=== PATIENT | female | born 1970 | race Caucasian/White ===

== ENCOUNTER 2023-06-14 21:41 | Emergency (ER) | payer BC, OTHER, SELFPAY ==
[2023-06-14] VITALS (10 sets, daily range): BP systolic 122–137; BP diastolic 77–85; PULSE 85–97; RESP 18; TEMP 36.4; O2SAT 94–97; BMI 31.9
--- NOTE | 2023-06-14 21:57 | ED.GENADULT ---
HPI - General Adult General Chief complaint: Allergic Reaction Stated complaint: allergic reaction Time Seen by Provider: 06/14/23 21:48 History of Present Illness HPI narrative: Patient here with tingling around lips after accidentally ingesting shrimp around 21:30 pm. Tried to vomit it up but couldn't. History of lip and face swelling in the past. Has epi pen with her but did not use prior to gettin 52-year-old woman presenting to the emergency department with concern of shrimp ingestion. 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 Realizing this about 15 minutes ago she took 50 mg oral diphenhydramine. Does have an EpiPen available but has not yet used it. She feels little nauseated but thinks that that is because of feeling stressed over this experience. Is feeling her lips being full and tingly. No difficulty breathing. No sensation of throat tightness or tongue swelling. No rashes noted. She tried to throw up immediate that after realizing what she had eaten but could not. Has never been intubated for shellfish ingestion. Related Data Previous Rx's Medication Instructions Recorded epinephrine 0.3 mg/0.3 mL 0.3 mg (0.3 mL) IM Q5-15M PRN #2 ea 06/15/23 injection, auto-injector (EpiPen) Allergies Allergy/AdvReac Type Severity Reaction Status Date / Time cephalexin [From Keflex] Allergy Severe Anaphylaxis Verified 06/14/23 22:08 shellfish Allergy Severe Anaphylaxis Uncoded 06/14/23 22:08 Review of Systems Status of ROS: Reports: 6 or more systems reviewed and unremarkable except as noted in History and below [facility] Social History Smoking Status: Never smoker Non-prescribed substance use: denies use Exam Narrative: Exam Narrative: Pleasant. Appears mildly maybe moderately anxious. Distracted. Speaking fluidly. No stridor. Lungs are clear. Breathing easily I do not appreciate any rash. Oropharynx moist. I do not appreciate any swelling or erythema. Is a little hesitant open her mouth wide it appears. Neck is supple without lymphadenopathy. Heart in elevated rate and regular rhythm. Abdomen is soft nontender. Extremities are well perfused without edema. Cranial nerves 2-12 intact. Const: Vital Signs, click to edit/add: Vital Signs - 24 hr 06/14/23 22:08 06/14/23 22:16 06/14/23 22:17 Temperature 97.6 F Pulse Rate 93 95 Pulse Rate [Right Pulse Oximeter] 92 Respiratory Rate 18 Blood Pressure 122/77 Blood Pressure [Ri ght Upper Arm] 137/85 Pulse Oximetry 97 97 97 Oxygen Delivery Me thod Room Air 06/14/23 22:19 06/14/23 22:30 06/14/23 22:45 Temperature Pulse Rate 97 90 Pulse Rate [Right Pulse Oximeter] Respiratory Rate Blood Pressure Blood Pressure [Ri ght Upper Arm] Pulse Oximetry 96 97 97 Oxygen Delivery Me thod 06/14/23 23:00 06/14/23 23:15 06/14/23 23:30 Temperature Pulse Rate 87 88 85 Pulse Rate [Right Pulse Oximeter] Respiratory Rate Blood Pressure Blood Pressure [Ri ght Upper Arm] Pulse Oximetry 95 95 94 Oxygen Delivery Me thod 06/14/23 23:45 06/15/23 00:00 06/15/23 00:15 Temperature Pulse Rate 85 82 77 Pulse Rate [Right Pulse Oximeter] Respiratory Rate Blood Pressure Blood Pressure [Ri ght Upper Arm] Pulse Oximetry 94 93 93 Oxygen Delivery Me thod 06/15/23 00:30 06/15/23 00:45 06/15/23 01:00 Temperature Pulse Rate 79 81 80 Pulse Rate [Right Pulse Oximeter] Respiratory Rate Blood Pressure Blood Pressure [Ri ght Upper Arm] Pulse Oximetry 94 93 94 Oxygen Delivery Me thod 06/15/23 01:15 06/15/23 01:30 06/15/23 01:45 Temperature Pulse Rate 80 79 78 Pulse Rate [Right Pulse Oximeter] Respiratory Rate Blood Pressure Blood Pressure [Ri ght Upper Arm] Pulse Oximetry 94 92 93 Oxygen Delivery Me thod 06/15/23 02:00 06/15/23 02:15 06/15/23 02:30 Temperature Pulse Rate 76 78 84 Pulse Rate [Right Pulse Oximeter] Respiratory Rate Blood Pressure Blood Pressure [Ri ght Upper Arm] Pulse Oximetry 94 93 92 Oxygen Delivery Me thod 06/15/23 02:45 06/15/23 03:00 06/15/23 03:15 Temperature Pulse Rate 82 83 78 Pulse Rate [Right Pulse Oximeter] Respiratory Rate Blood Pressure Blood Pressure [Ri ght Upper Arm] Pulse Oximetry 93 93 94 Oxygen Delivery Me thod 06/15/23 03:20 Temperature Pulse Rate 80 Pulse Rate [Right Pulse Oximeter] Respiratory Rate 16 Blood Pressure 122/86 Blood Pressure [Ri ght Upper Arm] Pulse Oximetry 100 Oxygen Delivery Me thod Documenting provider has reviewed patient's vital signs: yes Course Vital Signs Vital signs: Initial Vital Signs Temperature 97.6 F 06/14/23 22:08 Temperature Source Temporal Artery Scan 06/14/23 22:08 Pulse Rate 92 06/14/23 22:08 Pulse Rhythm Regular 06/14/23 22:08 Respiratory Rate 18 06/14/23 22:08 Blood Pressure 137/85 06/14/23 22:08 Blood Pressure Mean 102 06/14/23 22:08 Blood Pressure Position Sitting 06/14/23 22:08 Pulse Oximetry 97 06/14/23 22:08 Oxygen Delivery Method Room Air 06/14/23 22:08 Vital Signs Temperature 97.6 F 06/14/23 22:08 Pulse Rate 92 06/14/23 22:08 Respiratory Rate 18 06/14/23 22:08 Blood Pressure 137/85 06/14/23 22:08 Pulse Oximetry 97 06/14/23 22:08 Oxygen Delivery Method Room Air 06/14/23 22:08 Temperature 97.6 F 06/14/23 22:08 Pulse Rate 80 06/15/23 03:20 Respiratory Rate 16 06/15/23 03:20 Blood Pressure 122/86 06/15/23 03:20 Pulse Oximetry 100 06/15/23 03:20 Oxygen Delivery Method Room Air 06/14/23 22:08 Medications Administered Medications: Discontinued Medications Generic Name Dose Route Start Last Admin Trade Name Freq PRN Reason Stop Dose Admin Diphenhydramine HCl 25 mg 06/14/23 21:56 06/14/23 22:05 Diphenhydramine 50 Mg/Ml Inj IVP 06/14/23 21:57 25 mg ONCE ONE Administration Sodium Chloride 1,000 mls @ 1,000 mls/hr 06/14/23 21:56 06/14/23 22:04 0.9 % Sodium Chloride 1000 Ml IV 06/14/23 22:55 1,000 mls/hr .Q1H ONE Administration Methylprednisolone Sodium Succinate 93.75 mg 06/14/23 21:56 11/18/23 22:05 Methylprednisolone Sod Succ 62.5 Mg/Ml (125) IVP 06/14/23 21:57 93.75 mg ONCE ONE Administration Medical Decision Making MDM Narrative Medical decision making narrative: Clearly is ingested per report small quantity of shrimp/shellfish. Known allergy. Initiated on normal saline given another dose of diphenhydramine as IV and Solu-Medrol. Without respiratory symptoms or sensation of throat tightening tongue swelling I think we can hold on EpiPen. Will monitor closely. Over time in the emergency department was generally well though on a couple of my reassessments thought that her tongue felt a little more full. At 1 point was lying relatively flat and woke alarmed that was having some trouble breathing. Ultimately was requested to receive a dose of lorazepam; I think this was beneficial. After extended period of observation and without further progression of allergic reaction including improvement with some fading of the lip tingling/swelling that had initially reported, was discharged to care of her son. See patient discharge plan ECG Data Attestation: I personally reviewed and interpreted this ECG as follows: (Normal sinus rhythm rate of 87.) Discharge Plan Discharge Clinical Impression: Angioedema, Anxiety, Shellfish allergy, Allergic reaction Condition: Improved Additional Instructions: Stay well-hydrated. Can take diphenhydramine for breakthrough itch or rash. If beginning to have again a sense lip swelling would take diphenhydramine and as long as does not seem to be progressing quickly, give around an 1 hour to notice some improvement and if needed then present to the emergency department. If repeat exposure, take diphenhydramine and then if any sensation of difficulty breathing or throat tightness, use your EpiPen and present to the emergency department. Prednisone for 3 days from the [facility]. EpiPen refill Prescriptions: New epinephrine [EpiPen] 0.3 mg/0.3 mL auto-injector 0.3 mg IM Q5-15M PRNQty: 2 0RF Rx Instructions: do not exceed 3 doses per episode Follow Up/Referrals: Jarod Schofield MD [Staff Physician] - Stand Alone Forms: [employer] Info Instructions
[2023-06-14] MEDS: 0.9 % SODIUM CHLORIDE 1000 ml 1,000 ML IV (22:04)
[2023-06-14] MEDS: diphenhydrAMINE 50 MG/ML inj 25 MG IVP (22:05)
[2023-06-14] MEDS: METHYLPREDNISOLONE SOD SUCC 62.5 MG/ML (125) 93.75 MG IVP (22:05)
[2023-06-15] VITALS (15 sets, daily range): BP systolic 122; BP diastolic 86; PULSE 76–84; RESP 16; O2SAT 92–100
== END 2023-06-15 03:26 | disposition home or self-care (01) ==
PROVIDERS: Emergency Provider Family Medicine
DX: T78.02XA Anaphylactic reaction due to shellfish (crustaceans), initial encounter (principal); F41.9 Anxiety disorder, unspecified; T78.3XXA Angioneurotic edema, initial encounter
CPT/HCPCS: 93005; 94761; 96374; 96375; 99284; J1200; J2930; J7030